=== PATIENT | male | born 1965 | race Caucasian/White ===

== ENCOUNTER 2018-10-12 17:15 | Observation (INO) ==
--- NOTE | 2018-10-12 19:52 | Emergency Department Note ---
Disposition Clinical Impression: GI bleed, Difficulty breathing Anemia Qualifiers: Qualified Code(s): D50.0 - Disposition: Admitted As Inpatient Condition: Good Time of Disposition: 21:22 General Adult HPI - General Chief complaint: ED Recheck/Abnormal Lab/Rx Stated complaint: blood transfusion Time Seen by Provider: 10/12/18 18:20 Source: patient Mode of arrival: ambulatory Limitations: no limitations Nursing Notes Reviewed: Yes Vital Signs Reviewed: Yes - History of Present Illness HPI Narrative: 53 yo male with PMHx of HTN and patt-en-y gastric bypass surgery presents to the ED after receiving abnormal lab results. He states he has been experiencing worsening shortness of breath and chest pressure over the past several months, and notices it when he is getting in and out of his truck or walking long distances. He had not seen a doctor for many years and finally went to see a new primary care physician. On initial lab testing they found him to be anemic at 9.5 and told him that this was a "critically low value, and he needed a blood transfusion emergently." The patient states he feels fine at rest, and currentl y only complains of a sore throat. He has not had any abdominal pain, nausea or vomiting. He does admit to blood streaked stools at times. He denies fever, chills, leg swelling, leg pain. Pain Scale: 0 - Related Data Home Medications Medication Instructions Recorded Confirmed Amlodipine Besylate 10 mg PO DAILY 10/12/18 10/12/18 Citalopram Hydrobromide 40 mg PO DAILY 10/12/18 10/12/18 [Citalopram HBr] Melatonin 5 mg PO HS 10/12/18 10/12/18 Triamterene/HCTZ 37.5/25mg 1 tab PO DAILY 10/12/18 10/12/18 [Dyazide] Allergies Allergy/AdvReac Type Severity Reaction Status Date / Time No Known Allergies Allergy Verified 10/12/18 21:41 All systems ED: reviewed and negative except as stated. Review of Systems: As Per HPI Constitutional: Reports: weakness. Denies: fever, chills Eyes: Denies: vision change Cardiovascular: Reports: chest pain, dyspnea on exertion. Denies: orthopnea, edema, syncope Respiratory: Denies: cough, wheezes, hemoptysis Gastrointestinal: Reports: hematochezia. Denies: abdominal pain, nausea, vomiting Genitourinary: Denies: dysuria, hematuria Musculoskeletal: Denies: back pain, neck pain Integumentary: Denies: rash Neurological: Reports: weakness. Denies: headache, numbness, paresthesias, confusion Endocrine: Reports: fatigue Past Medical History - Past Medical History Attestation: Yes The following information was validated with the patient. Source: patient Medical history: Reports: hypertension Psychiatric history: Reports: anxiety - Social History Smoking Status: Never smoker Smokeless Tobacco Status: No Alcohol use: Reports: none Drug use: Reports: none Physical Exam - General Limitations: no limitations General appearance: alert, in no apparent distress - Head Head exam: atraumatic, normocephalic - Eye Eye exam: Present: normal appearance, PERRL, EOMI - ENT ENT exam: normal exam, normal oropharynx, mucous membranes moist, other (throat non-erythematous without visible exudate or lesions) - Neck Neck exam: Present: normal inspection. Absent: tenderness, lymphadenopathy - Chest Chest inspection: Present: normal inspection. Absent: tenderness - Respiratory Respiratory exam: Present: normal lung sounds bilaterally - Cardiovascular Cardiovascular exam: Present: regular rate, normal rhythm - Abdominal Exam Abdominal exam: Present: soft, Non-Tender. Absent: distention, guarding, rebound, rigidity - Rectal Exam [employer]er present during exam: Yes ([employer]) Rectal exam: Present: normal inspection, normal rectal tone. Absent: black stool, bloody stool, hemorrhoids, mass, tenderness - Extremities Exam Extremities exam: Present: normal inspection, pedal edema (trace, bilateral). Absent: tenderness - Neurological Exam Neurological exam: Present: alert, oriented X3 - Psychiatric Psychiatric exam: Present: normal affect, normal mood - Skin Skin exam: Present: warm, dry, intact. Absent: pallor Course Vital Signs Temperature 98.1 F 10/12/18 17:26 Pulse Rate 90 10/12/18 17:26 Respiratory Rate 14 10/12/18 17:26 Blood Pressure 191/83 10/12/18 17:26 O2 Sat by Pulse Oximetry 97 10/12/18 17:26 Temperature 98.2 F 10/13/18 12:20 Pulse Rate 65 10/13/18 12:20 Respiratory Rate 14 10/13/18 12:20 Blood Pressure 123/89 10/13/18 12:20 O2 Sat by Pulse Oximetry 99 10/13/18 12:20 Oxygen Delivery Oxygen Delivery Room Air Medical Decision Making - MDM Narrative Medical decision making narrative: Pt presents with increased SOB with exertion, concerning for unstable angina vs symptomatic anemia vs other cardiopulmonary process. Labs will be repeated, and we will obtain EKG, troponin, and cxr along with a FOB. Pt is at risk for GI bleed secondary to his patt-en-y procedure. 2044 - patient's hemoglobin has had a significant drop from 9.5-8.7 over the past 4 days. Chest x-ray did not demonstrate any acute cardiopulmonary findings. EKG does not show evidence of ACS. Due to the patient's drop in hemoglobin with increased shortness of breath and chest pain we will admit to the hospital to find the specific location of blood loss. Stool Hemoccult has been sent at this time. 2119 - patient has been accepted by hospitalist for further evaluation of his anemia. - Medical Records Medical records reviewed: Yes I reviewed the patient's medical records. - Lab Data Lab results reviewed: Yes I reviewed the patient's lab results. Result diagrams: 10/13/18 08:47 10/13/18 02:03 Lab Results 10/12/18 10/12/18 10/12/18 Range/Units 19:45 19:45 19:45 WBC 10.5 (4.3-11.1) K/mcL RBC 4.49 (4.19-5.50) M/mcL Hgb 8.7 L (12.9-16.9) g/dL Hct 29.9 L (37.5-50.1) % MCV 66.6 L (83.0-100.0) fL MCH 19.4 L (28.0-33.3) pg MCHC 29.1 L (31.6-35.5) g/dL RDW 17.5 H (11.5-14.5) % Plt Count 514 H (140-400) K/mcL MPV 8.9 L (9.4-12.4) fL Immature Gran % 0.4 (0-4) % Seg Neutrophils % 65.3 % Lymphocytes % 21.2 % Monocytes % 9.3 % Eosinophils % 3.0 % Basophils % 0.8 % Neutrophils # 6.9 (1.6-8.9) K/mcL Lymphocytes # 2.2 (0.6-4.6) K/mcL Monocytes # 1.0 (0.0-1.3) K/mcL Eosinophils # 0.3 (0.0-0.6) K/mcL Basophils # 0.1 (0.0-0.2) K/mcL Microcytosis Present A (Not Present) Sodium 134 L (136-145) mEq/L Potassium 3.4 L (3.5-5.1) mEq/L Chloride 98 (98-107) mEq/L Carbon Dioxide 26 (23-29) mEq/L BUN 24 H (6-20) mg/dL Creatinine 0.87 (0.70-1.30) mg/dL Est GFR ( Amer) > 60 (> 60) Est GFR (Non-Af Amer) > 60 (> 60) BUN/Creatinine Ratio 28 H (6-26) Glucose 98 (70-105) mg/dL Calculated Osmolality 282 (280-300) Calcium 9.4 (8.6-10.3) mg/dL Magnesium 2.2 (1.6-2.6) mg/dL Troponin I < 0.03 (< 0.04) ng/mL B-Natriuretic Peptide 131 H (Less than 100) pg/mL TSH 1.885 (0.340-5.600) mcIU/mL Stool Occult Bld Scrn (Negative) 10/12/18 Range/Units 20:30 WBC (4.3-11.1) K/mcL RBC (4.19-5.50) M/mcL Hgb (12.9-16.9) g/dL Hct (37.5-50.1) % MCV (83.0-100.0) fL MCH (28.0-33.3) pg MCHC (31.6-35.5) g/dL RDW (11.5-14.5) % Plt Count (140-400) K/mcL MPV (9.4-12.4) fL Immature Gran % (0-4) % Seg Neutrophils % % Lymphocytes % % Monocytes % % Eosinophils % % Basophils % % Neutrophils # (1.6-8.9) K/mcL Lymphocytes # (0.6-4.6) K/mcL Monocytes # (0.0-1.3) K/mcL Eosinophils # (0.0-0.6) K/mcL Basophils # (0.0-0.2) K/mcL Microcytosis (Not Present) Sodium (136-145) mEq/L Potassium (3.5-5.1) mEq/L Chloride (98-107) mEq/L Carbon Dioxide (23-29) mEq/L BUN (6-20) mg/dL Creatinine (0.70-1.30) mg/dL Est GFR ( Amer) (> 60) Est GFR (Non-Af Amer) (> 60) BUN/Creatinine Ratio (6-26) Glucose (70-105) mg/dL Calculated Osmolality (280-300) Calcium (8.6-10.3) mg/dL Magnesium (1.6-2.6) mg/dL Troponin I (< 0.04) ng/mL B-Natriuretic Peptide (Less than 100) pg/mL TSH (0.340-5.600) mcIU/mL Stool Occult Bld Scrn Negative (Negative) - Radiology Data Radiology results reviewed: Yes I reviewed the patient's radiology results. - EKG Data EKG #1 EKG attestation: Yes I reviewed and interpreted this EKG. EKG results narrative: EKG obtained at 19:15 on 10/12/2018 [facility], [place] interval 159, QRS duration 106, QTC 414, QTC 463 Sinus rhythm with abnormal R-wave progression in the anterior leads. No ST segment elevations or depressions. No other T-wave abnormalities. No old EKG for comparison. Attestation Statement - Attestation Attestation: Resident Attestation: I examined this patient and my medical decision making was reviewed with the Resident Physician. I agree with the documented findings, di sposition and treatment plan as described except to the extent set forth below. We independently had [id number] contact with the patient. Patient presented for evaluation of anemia. Patient states that he has had worsening symptoms over the last month with associated exertional dyspnea and fatigue. Patient saw primary care provider who ordered a outpatient lab test show hemoglobin of 9. No baseline hemoglobin to compare. Patient has noticed blood streaks in his stool. Patient has not had significant abdominal pain. Patient will undergo further evaluation for possible GI bleed. Abdomen soft nontender to palpation without guarding or rebound.
[2018-10-12 20:15] LABS: Basophils # 0.1 K/mcL (0.0-0.2); Basophils % 0.8 %; Eosinophils # 0.3 K/mcL (0.0-0.6); Hematocrit 29.9 % (37.5-50.1); Hemoglobin 8.7 g/dL (12.9-16.9); Immature Granulocytes % 0.4 % (0-4); Lymphocytes # 2.2 K/mcL (0.6-4.6); Lymphocytes % 21.2 %; Mean Corpuscular HGB Conc 29.1 g/dL (31.6-35.5); Mean Corpuscular Hemoglobin 19.4 pg (28.0-33.3); Mean Corpuscular Volume 66.6 fL (83.0-100.0); Mean Platelet Volume 8.9 fL (9.4-12.4); Monocytes % 9.3 %; Neutrophils # 6.9 K/mcL (1.6-8.9); Platelet Count 514 K/mcL (140-400); Red Blood Count 4.49 M/mcL (4.19-5.50); Red Cell Distribution Width 17.5 % (11.5-14.5); Segmented Neutrophils % 65.3 %
[2018-10-12 20:16] LABS: Microcytosis Present (Not Present)
[2018-10-12 20:37] LABS: BUN/Creatinine Ratio 28 (6-26); Blood Urea Nitrogen 24 mg/dL (6-20); Calcium 9.4 mg/dL (8.6-10.3); Carbon Dioxide 26 mEq/L (23-29); Chloride 98 mEq/L (98-107); Glucose 98 mg/dL (70-105); Magnesium 2.2 mg/dL (1.6-2.6); Osmolality,Calculated 282 (280-300); Potassium 3.4 mEq/L (3.5-5.1); Sodium 134 mEq/L (136-145); Troponin I < 0.03 ng/mL (< 0.04); eGFR For Non-African Americans > 60 (> 60)
[2018-10-12 20:51] LABS: Thyroid Stimulating Hormone 1.885 mcIU/mL (0.340-5.600)
[2018-10-12] MEDS ORDERED: Naloxone 0.4 MG/ML INJ IVP PRN (22:17)
[2018-10-12] MEDS ORDERED: 0.9 % Sodium Chloride 1,000 ML IVC SCH (22:30)
--- NOTE | 2018-10-12 23:05 | Internal Med History&Physical ---
Date of Encounter: 10/12/18 Time of Encounter: 23:01 Internal Medicine - H&P: HPI Chief complaint: Abnormal labs History of present illness: Mr. Valiente is a 53 year old male with a past medical history of hypertension and Vivienne-en-Y gastric bypass surgery in 2000 who was referred to the ED after outpatient laboratory workup revealed a low hemoglobin. On initial lab testing they found him to be anemic at 9.5. Repeat hemoglobin 8.7 here in the ED. Patient has noted pinkish streaks of blood on his stool on and off for the past month. Denies any abdominal pain. No reports of fever, chills or diarrhea. Patient does state that he takes a daily Aleve and has been doing so for the past year. Last colonoscopy in his 40s with removal of several benign polyps. History of colorectal cancer in his grandfather. Denies unintentional weight loss. Patient is also endorsing worsening shortness of breath and chest pressure over the past several months. Shortness of breath and chest pressure appear typically occur with exertion, particularly getting in and out of his truck and walking long distances. Patient does report one prior episode of chest pressure approximately one year ago while seated at a sporting event. Patient never had any further workup given that his pain resolved. Patient endorses a remote history of smoking in his 20s. Reports family history of heart disease in his father with bypass surgery in his 70s. Patient recently established care with a primary care physician after having not seen a physician in many years. On arrival patient was found to be afebrile, heart rate in the 90s and hypertensive with a blood pressure 191/83. Repeat hemoglobin here found to be 8.7 since previous outpatient lab work 4 days ago. Chest x-ray was un remarkable. EKG did not show any evidence of ischemia. Past Med Surg Social Fam HX - Past Medical History Medical history: hypertension Psychiatric history: anxiety - Social History Smoking Status: Never smoker Smokeless Tobacco Status: No Alcohol use: none Drug use: none Internal Medicine - H&P: Meds Amlodipine Besylate 10 mg PO DAILY 10/12/18 [History] Citalopram Hydrobromide [Citalopram HBr] 40 mg PO DAILY 10/12/18 [History] Melatonin 5 mg PO HS 10/12/18 [History] Triamterene/HCTZ 37.5/25mg [Dyazide] 1 tab PO DAILY 10/12/18 [History] Allergy/AdvReac Type Severity Reaction Status Date / Time No Known Allergies Allergy Verified 10/12/18 21:41 All Systems PM: A 10-system review of systems was performed and is negative for pertinent findings except as documented above in the HPI. - Constitutional Constitutional: no chills, no fever(s), no night sweats - EENT Eyes: no change in vision, no discharge, no pain, no photophobia Ears: no ear discharge, no ear pain, no tinnitus Nose, mouth and throat: no dysphagia, no nasal discharge, no neck pain, no sore throat - Cardiovascular Cardiovascular ROS IM: no chest pain, no diaphoresis, no dyspnea, no lightheadedness, no palpitations, no syncope - Respiratory Respiratory: no cough, no dyspnea, no wheezing, no excessive phlegm production - Gastrointestinal Gastrointestinal: no abdominal pain, no diarrhea, no hematemesis, no hematochezia, no melena, no nausea, no vomiting - Musculoskeletal Musculoskeletal ROS IM: no numbness, no tingling - Integumentary Integumentary IM: no rash, no unusual bruising - Neurological Neurological ROS: no confusion, no convulsions, no focal weakness, no numbness, no tingling, no tremor(s) - Hematologic/Lymphatic Hematologic/Lymphatic: no easy bruising - Constitutional Vitals: Temp Pulse Resp BP Pulse Ox 98.1 F 70 18 132/63 97 10/12/18 17:26 10/12/18 22:59 10/12/18 22:59 10/12/18 22:59 10/12/18 22:59 Exam: General: Alert and oriented 3 lying in bed in no acute distress Skin:Normal color, no rash, no lesions. HEENT:EOM, pupils equal, round and reactive. Cardiovascular:Normal S1 & S2, no rubs, murmurs or gallops. No JVD. Pulse regular. Lungs:Normal breath sounds, no wheezes or crackles. Abdomen:Soft, non-tender, no rigidity. Periumbilical hernia Extremities:No deformity, no edema or tenderness, no joint swelling or clubbing. Neurological:Normal cognition and motor skills. Pulses:Carotid and radial pulses normal +2. Rest of the physical exam is non contributory Internal Med - H&P Results - Labs CBC & Chem 7: 10/13/18 08:47 10/13/18 02:03 Labs: Short CBC 10/12/18 Range/Units 19:45 WBC 10.5 (4.3-11.1) K/mcL Hgb 8.7 L (12.9-16.9) g/dL Hct 29.9 L (37.5-50.1) % Plt Count 514 H (140-400) K/mcL Neutrophils # 6.9 (1.6-8.9) K/mcL BMP 10/12/18 19:45 Sodium 134 L Potassium 3.4 L Chloride 98 Carbon Dioxide 26 BUN 24 H Creatinine 0.87 Glucose 98 Calcium 9.4 Cardiac Enzymes 10/12/18 Range/Units 19:45 Troponin I < 0.03 (< 0.04) ng/mL - Impressions ITS Impressions Chest X-Ray 10/12/18 18:46 IMPRESSION: 1. No active pulmonary disease. D/ / Nicolas Fajardo MD / Nicolas Fajardo MD Interpreting Provider: Nicolas Fajardo MD - Assessment and Plan (1) Anemia Current Visit: Yes Status: Acute Assessment and plan: Symptomatic microcytic anemia associated with dyspnea and symptoms of orthostasis for the past month. Hemoglobin of 8.7 down from 9.5 four days ago. History of Vivienne-en-Y in 2000. Patient not currently on any blood thinner. Patient reporting pinkish streaks of blood on his stool intermittently. Also endorses taking 1 daily Aleve for the past year. Concern for GI bleed source of which is unclear. Patient currently asymptomatic. Hemodynamically stable. -We will repeat hemoglobin in the morning. Hold off transfusion for now. Consider transfusing if hemoglobin continues to trend downwards. Qualifiers: Qualified Code(s): D50.0 - Iron deficiency anemia secondary to blood loss (chronic) (2) Dyspnea Current Visit: Yes Status: Acute Assessment and plan: Patient reports 1 month history of dyspnea with exertion. Suspect likely seco ndary to anemia. Cannot r/o underlying CAD as a contributing factor -Consider tranfusing if Hb continues to drop -Out Px workup for CAD Qualifiers: Dyspnea type: dyspnea on exertion Qualified Code(s): R06.09 - Other forms of dyspnea (3) GI bleed Current Visit: Yes Status: Acute Assessment and plan: History of GI bleed in patient with prior history of Vivienne-en-Y surgery in 2000. Patient reports having streaks of blood intermittently on his stool. Patient also endorses one daily Aleve for the past year. No reports of abdominal pain. Source likely lower GI bleed however, given history of chronic NSAID use and Vivienne-en-Y surgery cannot exclude upper GI source as well. -Keep patient nothing by mouth -We will start on IV Protonix -Case discussed with surgery who will plan for possible endoscopy tomorrow afternoon. Qualifiers: GI bleed type/associated pathology: unspecified gastrointestinal hemorrhage type Qualified Code(s): K92.2 - Gastrointestinal hemorrhage, unspecified (4) Chest pressure Current Visit: Yes Status: Acute Assessment and plan: Patient reports intermittent chest pressure with exertion. Initial troponin negative. EKG shows no evidence of ischemic changes. Patient has of a family history of heart very artery disease in his father. Patient reports he has out patient stress test plan for the of this month. Patient currently asymptomatic. (5) DVT prophylaxis Current Visit: Yes Status: Acute Assessment and plan: Pneumatic compression devices - Time Spent With Patient Total time spent is greater than 50% in coordination of care (as documented) at patient's floor/unit and/or counseling patient:
[2018-10-13 02:19] LABS: Basophils # 0.1 K/mcL (0.0-0.2); Basophils % 0.9 %; Eosinophils # 0.4 K/mcL (0.0-0.6); Eosinophils % 4.6 %; Hematocrit 27.7 % (37.5-50.1); Immature Granulocytes % 0.4 % (0-4); Lymphocytes # 2.1 K/mcL (0.6-4.6); Lymphocytes % 24.5 %; Mean Corpuscular HGB Conc 28.9 g/dL (31.6-35.5); Mean Corpuscular Hemoglobin 19.5 pg (28.0-33.3); Mean Corpuscular Volume 67.6 fL (83.0-100.0); Mean Platelet Volume 8.8 fL (9.4-12.4); Monocytes # 0.9 K/mcL (0.0-1.3); Monocytes % 10.2 %; Neutrophils # 5.1 K/mcL (1.6-8.9); Platelet Count 430 K/mcL (140-400); Red Cell Distribution Width 17.8 % (11.5-14.5); Segmented Neutrophils % 59.4 %
[2018-10-13 02:23] LABS: Prothrombin Time 11.3 Seconds (9.4-12.1)
[2018-10-13 02:25] LABS: Activated Partial Thrombo Time 29.8 Seconds (26.0-36.0)
[2018-10-13 02:35] LABS: Alanine Aminotransferase 33 Units/L (7-52); Albumin 3.7 g/dL (3.5-5.7); Albumin/Globulin Ratio 1.2 (1.1-2.2); Alkaline Phosphatase 287 Units/L (34-104); Aspartate Amino Transferase 28 Units/L (13-39); BUN/Creatinine Ratio 26 (6-26); Bilirubin,Total 0.3 mg/dL (0.3-1.0); Blood Urea Nitrogen 22 mg/dL (6-20); Calcium 8.6 mg/dL (8.6-10.3); Carbon Dioxide 27 mEq/L (23-29); Chloride 99 mEq/L (98-107); Glucose 100 mg/dL (70-105); Osmolality,Calculated 283 (280-300); Potassium 3.2 mEq/L (3.5-5.1); Sodium 135 mEq/L (136-145); Total Protein 6.7 g/dL (6.4-8.9); eGFR For Non-African Americans > 60 (> 60)
[2018-10-13 02:48] LABS: Hypochromasia Present (Not Present); Platelet Estimate Normal (Normal); Target Cells 2+ (Not Present)
[2018-10-13 09:07] LABS: Hematocrit 33.7 % (37.5-50.1)
[2018-10-13 09:11] LABS: Hemoglobin 9.6 g/dL (12.9-16.9)
[2018-10-13] MEDS: Pantoprazole 40 MG VIAL IVP SCH ×2 (09:34→17:13)
--- NOTE | 2018-10-13 10:02 | Internal Med Progress Note ---
Hospitalist Progress Note - Encounter Date of Encounter: 10/13/18 Time of Encounter: 10:02 - Subjective Interval History: Patient presents here for low hemoglobin and lower gi bleed. This morning he has no complaints, no acute events. Denies abdominal pain, CP, SOB, melena, hematochezia. He did have SOB prior to admission, currently no issues. - Exam Vitals: Temp Pulse Resp BP Pulse Ox 97.8 F 63 15 106/67 95 10/13/18 08:18 10/13/18 08:18 10/13/18 08:18 10/13/18 08:18 10/13/18 08:18 Exam: General: Alert and oriented 3 lying in bed in no acute distress Skin:Normal color, no rash, no lesions. Head: NC/AT EENT: MMM, EOM, pupils equal, round and reactive. Cardiovascular:Normal S1 & S2, no rubs, murmurs or gallops. No JVD. Pulse regular. Lungs:Normal breath sounds, no wheezes or crackles. Abdomen:Soft, non-tender, no rigidity. Periumbilical hernia Extremities:No deformity, no edema or tenderness, no joint swelling or clubbing. Neurological:Normal cognition and motor skills. Pulses:Carotid and radial pulses normal +2. - Assessment and Plan (1) Anemia Current Visit: Yes Status: Acute Assessment and Plan: Symptomatic microcytic anemia associated with dyspnea and symptoms of orthostasis for the past month. Hemoglobin of 8.7 down from 9.5 four days ago. History of Vivienne-en-Y in 2000. Patient not currently on any blood thinner. Patient reporting pinkish streaks of blood on his stool intermittently. Also endorses taking 1 daily Aleve for the past year. Concern for GI bleed source of which is unclear. Patient currently asymptomatic. Hemodynamically stable. -We will repeat hemoglobin in the morning. DC NSAIDs IV Protonix No indication for transfusion at this time, repeat hemoglobin at 9.6 and hemodynamically stable. Endoscopy likely tomorrow. (2) GI bleed Current Visit: Yes Status: Acute Assessment and Plan: History of GI bleed in patient with prior history of Vivienne-en-Y surgery in 2000. Patient reports having streaks of blood intermittently on his stool. Patient also endorses one daily Aleve for the past year. No reports of abdominal pain. Source likely lower GI bleed however, given history of chronic NSAID use and Vivienne-en-Y surgery cannot exclude upper GI source as well. Plan as above. (3) Dyspnea Current Visit: Yes Status: Acute Assessment and Plan: Patient reports 1 month history of dyspnea with exertion. Suspect likely secondary to anemia. Cannot r/o underlying CAD as a contributing factor No indication for transfusion. -Out Px workup for CAD (4) Chest pressure Current Visit: Yes Status: Acute Assessment and Plan: Patient reports intermittent chest pressure with exertion. Initial troponin negative. EKG shows no evidence of ischemic changes. Patient has of a family history of heart very artery disease in his father. Patient reports he has outpatient stress test plan for the of this month. Patient currently asymptomatic. If chest pain returns, will consider doing stress test after GI bleed workup. (5) DVT prophylaxis Current Visit: Yes Status: Acute Assessment and Plan: Pneumatic compression devices - Time Spent with Patient Total time spent is greater than 50% in coordination of care (as documented) at patient's floor/unit and/or counseling patient: Internal Medicine: Result - Labs CBC & Chem 7: 10/13/18 08:47 10/13/18 02:03 Labs: Short CBC 10/12/18 10/13/18 10/13/18 Range/Units 19:45 02:03 08:47 WBC 10.5 8.5 (4.3-11.1) K/mcL Hgb 8.7 L 8.0 L 9.6 L D (12.9-16.9) g/dL Hct 29.9 L 27.7 L 33.7 L (37.5-50.1) % Plt Count 514 H 430 H (140-400) K/mcL Neutrophils # 6.9 5.1 (1.6-8.9) K/mcL BMP 10/12/18 10/13/18 19:45 02:03 Sodium 134 L 135 L Potassium 3.4 L 3.2 L Chloride 98 99 Carbon Dioxide 26 27 BUN 24 H 22 H Creatinine 0.87 0.85 Glucose 98 100 Calcium 9.4 8.6 Cardiac Enzymes 10/12/18 10/13/18 Range/Units 19:45 02:03 Troponin I < 0.03 < 0.03 (< 0.04) ng/mL Liver Function 10/13/18 Range/Units 02:03 Total Bilirubin 0.3 (0.3-1.0) mg/dL AST 28 (13-39) Units/L ALT 33 (7-52) Units/L Alkaline Phosphatase 287 H (34-104) Units/L Albumin 3.7 (3.5-5.7) g/dL - ABG Interpretation ABG results: PT/INR, D-dimer PT 11.3 Seconds (9.4-12.1) 10/13/18 02:03 - Impressions Impressions Chest X-Ray 10/12/18 18:46 IMPRESSION: 1. No active pulmonary disease. D/ / Nicolas Fajardo MD / Nicolas Fajardo MD Interpreting Provider: Nicolas Fajardo MD Consult Discharge Plan - Plan Referrals: Nadir Sanchez [Primary Care Provider] -
--- NOTE | 2018-10-13 11:13 | AcuteCare Surgery Consult Note ---
<Harrison Fritz N - Last Filed: 10/13/18 11:42> Date of Encounter: 10/13/18 Time of Encounter: 08:20 Assessment and Plan (1) Anemia Current Visit: Yes Status: Acute Concern for blood loss anemia secondary to GI bleed Microcytic anemia with symptomatic exertional dyspnea, fatigue, and dizziness Previous history of Vivienne-en-Y gastric bypass surgery in 2000 Patient notes one-month history of blood streaking in stools, denies large volume hematemesis, hematochezia, or melena denies anticoagulant use, but admits to daily Aleve Hemoglobin 9.6 this morning with an INR 1.0 Plan for EGD and colonoscopy tomorrow Clear liquid diet without red or purple dye Nothing by mouth at midnight Bowel prep ordered Qualifiers: Qualified Code(s): D50.0 - Iron deficiency anemia secondary to blood loss (chronic) History of Present Illness Consult date: 10/13/18 History of present illness: Patient is 53-year-old male with a past medical history of Vivienne-en-Y gastric bypass surgery who had anemia of 9.5 found on outpatient labs. Repeat hemoglobin in the emergency department was 8.7. 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 He has also noted blood streaking in his stool. No abdominal pain, has been tolerating a diet, no fevers or chills, no large volume hematochezia or melena. Family history of colon cancer in his grandfather. Has had previous colonoscopies which was only significant for polyps. Patient was admitted to the hospital, typed and screened, received protonix, but did not require packed RBC transfusion. Repeat labs this morning show hemoglobin 9.6. INR 1.0 and patient denies any anticoagulant use. Past Med Surg Social Fam HX - Past Medical History Medical history: hypertension Psychiatric history: anxiety - Social History Smoking Status: Never smoker Smokeless Tobacco Status: Yes Alcohol use: rarely Drug use: none Medications and Allergies Amlodipine Besylate 10 mg PO DAILY 10/12/18 [History] Citalopram Hydrobromide [Citalopram HBr] 40 mg PO DAILY 10/12/18 [History] Melatonin 5 mg PO HS 10/12/18 [History] Triamterene/HCTZ 37.5/25mg [Dyazide] 1 tab PO DAILY 10/12/18 [History] Allergy/AdvReac Type Severity Reaction Status Date / Time No Known Allergies Allergy Verified 10/12/18 21:41 Review of Systems All systems PM: The remainder of the systems were reviewed and are negative - Constitutional no chills, no fever(s) - Cardiovascular no chest pain - Respiratory dyspnea on exertion - Gastrointestinal other (Blood streaking in stool), no abdominal pain, no diarrhea, no melena - Genitourinary no hematuria - Integumentary no rash - Neurological dizziness - Endocrine fatigue General Surgery Exam Initial Vital Signs Temp Pulse Resp BP Pulse Ox 98.1 F 90 14 191/83 97 10/12/18 17:26 10/12/18 17:26 10/12/18 17:10/12/18 17:26 10/12/18 17:26 - General physical appearance well developed, well nourished, no distress - Eyes PERRL, normal ocular movement - ENT normal pinna, normal nares - Neck trachea midline, no venous distension - Respiratory normal expansion, normal respiratory effort, clear to auscultation - Cardiovascular Cardiovascular exam: Present: RRR. Absent: murmurs - Abdomen Abdomen general surgery: Present: bowel sounds present, soft, non tender. Absent: guarding, rigid - Integumentary Integumentary general surgery: Present: warm and dry, no abnormal pigmentation - Neurologic Present: CN 2-12 grossly intact - Musculoskeletal Present: normal posture - Psychiatric Psychiatric general surgery: Present: A&Ox3, appropriate Exam Initial Vital Signs Temp Pulse Resp BP Pulse Ox 98.1 F 90 14 191/83 97 10/12/18 17:26 10/12/18 17:26 10/12/18 17:26 10/12/18 17:26 10/12/18 17:26 Results - Labs 10/13/18 08:47 10/13/18 02:03 Abnormal lab results RBC 4.10 M/mcL (4.19-5.50) L 10/13/18 02:03 Hgb 9.6 g/dL (12.9-16.9) L D 10/13/18 08:47 Hct 33.7 % (37.5-50.1) L 10/13/18 08:47 MCV 67.6 fL (83.0-100.0) L 10/13/18 02:03 MCH 19.5 pg (28.0-33.3) L 10/13/18 02:03 MCHC 28.9 g/dL (31.6-35.5) L 10/13/18 02:03 RDW 17.8 % (11.5-14.5) H 10/13/18 02:03 Plt Count 430 K/mcL (140-400) H 10/13/18 02:03 MPV 8.8 fL (9.4-12.4) L 10/13/18 02:03 Present (Not Present) A 10/13/18 02:03 Present (Not Present) A 10/12/18 19:45 2+ (Not Present) A 10/13/18 02:03 Sodium 135 mEq/L (136-145) L 10/13/18 02:03 Potassium 3.2 mEq/L (3.5-5.1) L 10/13/18 02:03 BUN 22 mg/dL (6-20) H 10/13/18 02:03 28 (6-26) H 10/12/18 19:45 POC Glucose 109 mg/dL (70-99) H 10/13/18 05:31 287 Units/L (34-104) H 10/13/18 02:03 B-Natriuretic Peptide 131 pg/mL (Less than 100) H 10/12/18 19:45 Diabetes panel 10/12/18 10/13/18 Range/Units 19:45 02:03 Sodium 134 L 135 L (136-145) mEq/L Potassium 3.4 L 3.2 L (3.5-5.1) mEq/L Chloride 98 99 (98-107) mEq/L Carbon Dioxide 26 27 (23-29) mEq/L BUN 24 H 22 H (6-20) mg/dL Creatinine 0.87 0.85 (0.70-1.30) mg/dL Glucose 98 100 (70-105) mg/dL Calcium 9.4 8.6 (8.6-10.3) mg/dL AST 28 (13-39) Units/L ALT 33 (7-52) Units/L Alkaline Phosphatase 287 H (34-104) Units/L Albumin 3.7 (3.5-5.7) g/dL Thyroid panel 10/12/18 Range/Units 19:45 TSH 1.885 (0.340-5.600) mcIU/mL Calcium panel 10/12/18 10/13/18 Range/Units 19:45 02:03 Calcium 9.4 8.6 (8.6-10.3) mg/dL Albumin 3.7 (3.5-5.7) g/dL Pituitary panel 10/12/18 10/13/18 Range/Units 19:45 02:03 Sodium 134 L 135 L (136-145) mEq/L Potassium 3.4 L 3.2 L (3.5-5.1) mEq/L Chloride 98 99 (98-107) mEq/L Carbon Dioxide 26 27 (23-29) mEq/L BUN 24 H 22 H (6-20) mg/dL Creatinine 0.87 0.85 (0.70-1.30) mg/dL Glucose 98 100 (70-105) mg/dL Calcium 9.4 8.6 (8.6-10.3) mg/dL TSH 1.885 (0.340-5.600) mcIU/mL Adrenal panel 10/12/18 10/13/18 Range/Units 19:45 02:03 Sodium 134 L 135 L (136-145) mEq/L Potassium 3.4 L 3.2 L (3.5-5.1) mEq/L Chloride 98 99 (98-107) mEq/L Carbon Dioxide 26 27 (23-29) mEq/L BUN 24 H 22 H (6-20) mg/dL Creatinine 0.87 0.85 (0.70-1.30) mg/dL Glucose 98 100 (70-105) mg/dL Calcium 9.4 8.6 (8.6-10.3) mg/dL Total Bilirubin 0.3 (0.3-1.0) mg/dL AST 28 (13-39) Units/L ALT 33 (7-52) Units/L Alkaline Phosphatase 287 H (34-104) Units/L Albumin 3.7 (3.5-5.7) g/dL All other labs normal. Consult Discharge Plan - Plan Referrals: Nadir Sanchez [Primary Care Provider] - <Ander Foss - Last Filed: 10/13/18 16:55> Date of Encounter: 10/13/18 Review of Systems All systems PM: The remainder of the systems were reviewed and are negative General Surgery Exam Initial Vital Signs Temp Pulse Resp BP Pulse Ox 98.1 F 90 14 191/83 97 10/12/18 17:26 10/12/18 17:26 10/12/18 17:26 10/12/18 17:26 10/12/18 17:26 Exam Initial Vital Signs Temp Pulse Resp BP Pulse Ox 98.1 F 90 14 191/83 97 10/12/18 17:26 10/12/18 17:26 10/12/18 17:26 10/12/18 17:26 10/12/18 17:26 Results - Labs 10/13/18 08:47 10/13/18 02:03 Abnormal lab results RBC 4.10 M/mcL (4.19-5.50) L 10/13/18 02:03 Hgb 9.6 g/dL (12.9-16.9) L D 10/13/18 08:47 Hct 33.7 % (37.5-50.1) L 10/13/18 08:47 MCV 67.6 fL (83.0-100.0) L 10/13/18 02:03 MCH 19.5 pg (28.0-33.3) L 10/13/18 02:03 MCHC 28.9 g/dL (31.6-35.5) L 10/13/18 02:03 RDW 17.8 % (11.5-14.5) H 10/13/18 02:03 Plt Count 430 K/mcL (140-400) H 10/13/18 02:03 MPV 8.8 fL (9.4-12.4) L 10/13/18 02:03 Present (Not Present) A 10/13/18 02:03 Present (Not Present) A 10/12/18 19:45 2+ (Not Present) A 10/13/18 02:03 Sodium 135 mEq/L (136-145) L 10/13/18 02:03 Potassium 3.2 mEq/L (3.5-5.1) L 10/13/18 02:03 BUN 22 mg/dL (6-20) H 10/13/18 02:03 28 (6-26) H 10/12/18 19:45 POC Glucose 109 mg/dL (70-99) H 10/13/18 05:31 287 Units/L (34-104) H 10/13/18 02:03 B-Natriuretic Peptide 131 pg/mL (Less than 100) H 10/12/18 19:45 Diabetes panel 10/12/18 10/13/18 Range/Units 19:45 02:03 Sodium 134 L 135 L (136-145) mEq/L Potassium 3.4 L 3.2 L (3.5-5.1) mEq/L Chloride 98 99 (98-107) mEq/L Carbon Dioxide 26 27 (23-29) mEq/L BUN 24 H 22 H (6-20) mg/dL Creatinine 0.87 0.85 (0.70-1.30) mg/dL Glucose 98 100 (70-105) mg/dL Calcium 9.4 8.6 (8.6-10.3) mg/dL AST 28 (13-39) Units/L ALT 33 (7-52) Units/L Alkaline Phosphatase 287 H (34-104) Units/L Albumin 3.7 (3.5-5.7) g/dL Thyroid panel 10/12/18 Range/Units 19:45 TSH 1.885 (0.340-5.600) mcIU/mL Calcium panel 10/12/18 10/13/18 Range/Units 19:45 02:03 Calcium 9.4 8.6 (8.6-10.3) mg/dL Albumin 3.7 (3.5-5.7) g/dL Pituitary panel 10/12/18 10/13/18 Range/Units 19:45 02:03 Sodium 134 L 135 L (136-145) mEq/L Potassium 3.4 L 3.2 L (3.5-5.1) mEq/L Chloride 98 99 (98-107) mEq/L Carbon Dioxide 26 27 (23-29) mEq/L BUN 24 H 22 H (6-20) mg/dL Creatinine 0.87 0.85 (0.70-1.30) mg/dL Glucose 98 100 (70-105) mg/dL Calcium 9.4 8.6 (8.6-10.3) mg/dL TSH 1.885 (0.340-5.600) mcIU/mL Adrenal panel 10/12/18 10/13/18 Range/Units 19:45 02:03 Sodium 134 L 135 L (136-145) mEq/L Potassium 3.4 L 3.2 L (3.5-5.1) mEq/L Chloride 98 99 (98-107) mEq/L Carbon Dioxide 26 27 (23-29) mEq/L BUN 24 H 22 H (6-20) mg/dL Creatinine 0.87 0.85 (0.70-1.30) mg/dL Glucose 98 100 (70-105) mg/dL Calcium 9.4 8.6 (8.6-10.3) mg/dL Total Bilirubin 0.3 (0.3-1.0) mg/dL AST 28 (13-39) Units/L ALT 33 (7-52) Units/L Alkaline Phosphatase 287 H (34-104) Units/L Albumin 3.7 (3.5-5.7) g/dL All other labs normal. - Attending Attestation patient seen and examined. i have reviewed all labs, imaging and notes pertinent to this case. I have discussed the case in detail with the resident. i agree with the above assessment and plan.
[2018-10-13] MEDS: Chloraseptic Spray 177 ML BOTTLE MM PRN ×2 (14:25→23:42)
[2018-10-13] MEDS: Nicotine 14 MG PATCH.TD24 TD SCH (14:25)
[2018-10-14 05:23] LABS: Basophils % 0.8 %; Immature Granulocytes % 0.2 % (0-4)
[2018-10-14 05:25] LABS: Basophils # 0.1 K/mcL (0.0-0.2); Eosinophils # 0.7 K/mcL (0.0-0.6); Hematocrit 30.5 % (37.5-50.1); Hemoglobin 8.6 g/dL (12.9-16.9); Lymphocytes # 1.9 K/mcL (0.6-4.6); Lymphocytes % 19.9 %; Mean Corpuscular HGB Conc 28.2 g/dL (31.6-35.5); Mean Corpuscular Hemoglobin 19.4 pg (28.0-33.3); Mean Corpuscular Volume 68.8 fL (83.0-100.0); Monocytes # 0.8 K/mcL (0.0-1.3); Monocytes % 8.7 %; Neutrophils # 5.9 K/mcL (1.6-8.9); Platelet Count 482 K/mcL (140-400); Red Blood Count 4.43 M/mcL (4.19-5.50); Red Cell Distribution Width 17.9 % (11.5-14.5); Segmented Neutrophils % 63.4 %
[2018-10-14] MEDS: Pantoprazole 40 MG VIAL IVP SCH ×2 (05:51→18:24)
[2018-10-14 05:57] LABS: Platelet Estimate Normal (Normal)
[2018-10-14 06:20] LABS: BUN/Creatinine Ratio 18 (6-26); Blood Urea Nitrogen 15 mg/dL (6-20); Calcium 9.2 mg/dL (8.6-10.3); Carbon Dioxide 29 mEq/L (23-29); Chloride 103 mEq/L (98-107); Glucose 103 mg/dL (70-105); Osmolality,Calculated 287 (280-300); Potassium 4.6 mEq/L (3.5-5.1); Sodium 138 mEq/L (136-145); eGFR For Non-African Americans > 60 (> 60)
--- NOTE | 2018-10-14 10:45 | Internal Med Progress Note ---
Hospitalist Progress Note - Encounter Date of Encounter: 10/14/18 Time of Encounter: 13:26 - Subjective Interval History: Patient complains of dry, sore throat. He denies any bloody bowel movements, melena, nausea/vomiting, fevers/chills. - Exam Vitals: Temp Pulse Resp BP Pulse Ox 97.8 F 68 14 131/76 95 10/14/18 07:55 10/14/18 07:55 10/14/18 07:55 10/14/18 07:55 10/14/18 07:55 Exam: General: Alert and oriented 3 lying in bed in no acute distress Skin:Normal color, no rash, no lesions. HEENT:EOM, pupils equal, round and reactive. Tonsils are normal in appearance, no exudate, no airway swelling. Cardiovascular:Normal S1 & S2, no rubs, murmurs or gallops. No JVD. Pulse regular. Lungs:Normal breath sounds, no wheezes or crackles. Abdomen:Soft, non-tender, no rigidity. Periumbilical hernia Extremities:No deformity, no edema or tenderness, no joint swelling or clubbing. Neurological:Normal cognition and motor skills. Pulses:Carotid and radial pulses normal +2. Rest of the physical exam is non contributory - Assessment and Plan (1) Anemia Current Visit: Yes Status: Acute Assessment and Plan: Symptomatic microcytic anemia associated with dyspnea and symptoms of orthostasis for the past month. Hemoglobin of 8.7 down from 9.5 four days ago. History of Vivienne-en-Y in 2000. Patient not currently on any blood thinner. Patient reporting pinkish streaks of blood on his stool intermittently. Also endorses taking 1 daily Aleve for the past year. Concern for GI bleed source of which is unclear. Patient currently asymptomatic. Hemodynamically stable. Home NSAIDs discontinued. IV Protonix No indication for transfusion at this time. Plan for endoscopy today (2) GI bleed Current Visit: Yes Status: Acute Assessment and Plan: History of GI bleed in patient with prior history of Vivienne-en-Y surgery in 2000. Patient reports having streaks of blood intermittently on his stool. Patient also endorses one daily Aleve for the past year. No reports of abdominal pain. Source likely lower GI bleed however, given history of chronic NSAID use and Vivienne-en-Y surgery cannot exclude upper GI source as well. Plan as above (3) Dyspnea Current Visit: Yes Status: Acute Assessment and Plan: Patient reports 1 month history of dyspnea with exertion. Suspect likely secondary to anemia. Cannot r/o underlying CAD as a contributing factor -Consider tranfusing if Hb continues to drop -Out Px workup for CAD is already scheduled (4) Chest pressure Current Visit: Yes Status: Acute Assessment and Plan: Patient reports intermittent chest pressure with exertion. Initial troponin negative. EKG shows no evidence of ischemic changes. Patient has of a family history of heart very artery disease in his father. Patient reports he has outpatient stress test plan for the of this month. Patient currently asymptomatic. (5) DVT prophylaxis Current Visit: Yes Status: Acute Assessment and Plan: Pneumatic compression devices - Time Spent with Patient Total time spent is greater than 50% in coordination of care (as documented) at patient's floor/unit and/or counseling patient: Internal Medicine: Result - Labs CBC & Chem 7: 10/14/18 04:25 10/14/18 04:25 Labs: Short CBC 10/14/18 Range/Units 04:25 WBC 9.3 (4.3-11.1) K/mcL Hgb 8.6 L (12.9-16.9) g/dL Hct 30.5 L (37.5-50.1) % Plt Count 482 H (140-400) K/mcL Neutrophils # 5.9 (1.6-8.9) K/mcL BMP 10/14/18 04:25 Sodium 138 Potassium 4.6 Chloride 103 Carbon Dioxide 29 BUN 15 Creatinine 0.82 Glucose 103 Calcium 9.2 - ABG Interpretation ABG results: PT/INR, D-dimer PT 11.3 Seconds (9.4-12.1) 10/13/18 02:03 Consult Discharge Plan - Plan Referrals: Ndair Sanchez [Primary Care Provider] - (1) Anemia Qualifiers: Qualified Code(s): D50.0 - Iron deficiency anemia secondary to blood loss (chronic) (2) GI bleed Qualifiers: GI bleed type/associated pathology: unspecified gastrointestinal hemorrhage type Qualified Code(s): K92.2 - Gastrointestinal hemorrhage, unspecified (3) Dyspnea Qualifiers: Dyspnea type: dyspnea on exertion Qualified Code(s): R06.09 - Other forms of dyspnea
[2018-10-14] MEDS ORDERED: *HR* Midazolam HCl 5 MG/5 ML VIAL IVP ONE (10:55)
[2018-10-14] MEDS ORDERED: *HR* FentaNYL (PF) 100 MCG/2 ML VIAL ONE (10:55)
[2018-10-14] MEDS ORDERED: Tetracaine/Benzocaine/Butamben 1 SPRAY AEROSOL MM ONE (11:02)
[2018-10-14] MEDS ORDERED: *HR* FentaNYL (PF) 100 MCG/2 ML VIAL IVP ONE (11:02)
--- NOTE | 2018-10-14 11:02 | Pre-Sedation Evaluation ---
Pre-sedation evaluation - Pre-sedation checklist Date of procedure: 10/14/18 Procedure: EDG/Coloscopy Recent Vitals: Last Vital Signs Temp 97.8 F 10/14/18 07:55 Pulse 68 10/14/18 07:55 Resp 14 10/14/18 07:55 BP 131/76 10/14/18 07:55 Pulse Ox 95 10/14/18 07:55 H&P (including ROS) documented in medical record: Yes Previous reaction to sedatives/anesthetics: No Dietary Status: NPO after Midnight Dentition: No loose teeth or bridges ASA Classification *see protocol: CLASS II-Mild systemic disease Plan of Care: Pt appropriate candidate for procedure/moderate/conscious sedation, Risks/benefits of procedure/sedation discussed w/ patient/family
[2018-10-14] MEDS: 0.9 % Sodium Chloride 1,000 ML IVC SCH (11:17)
[2018-10-14] MEDS: *HR* Midazolam HCl 5 MG/5 ML VIAL IVP ONE ×3 (11:17→11:21)
[2018-10-14] MEDS ORDERED: *HR* Midazolam HCl 2 MG/2 ML VIAL ONE (11:19)
--- NOTE | 2018-10-14 14:12 | Electrocardiograph Report ---
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
[2018-10-14] MEDS: Nicotine 14 MG PATCH.TD24 TD SCH (15:59)
--- NOTE | 2018-10-14 16:51 | AcuteCareSurgery Progress Note ---
Date of Encounter: 10/14/18 Time of Encounter: 16:49 - Assessment and Plan (1) Anemia Current Visit: Yes Status: Acute 53M with anemia of unknown cause; attempted EGD and colonoscopy but patient did not tolerate the procedure while on iv sedation; trend h/h CLD NPO at midnight plan for scopes on 10/15 with MAC Qualifiers: Iron deficiency anemia type: unspecified iron deficiency Qualified Code(s): D50.9 - Iron deficiency anemia, unspecified Subjective Patient reports: no new complaints Objective Vital Signs - Last 8 Hours Temp Pulse Resp BP Pulse Ox 10/14/18 13:00 64 14 112/65 92 10/14/18 12:30 98.2 F 83 16 130/75 95 10/14/18 12:00 97.7 F 76 15 126/82 95 10/14/18 11:48 84 16 105/58 98 10/14/18 11:43 65 16 108/59 94 10/14/18 11:38 63 16 112/61 93 10/14/18 11:33 65 16 110/61 93 10/14/18 11:28 70 16 119/81 97 10/14/18 11:23 83 16 129/61 99 10/14/18 11:18 77 16 150/86 100 10/14/18 11:13 71 16 150/88 100 10/14/18 11:05 98.0 F 76 16 147/75 100 Intake and Output 10/14/18 10/14/18 10/14/18 07:59 15:59 23:59 Intake Total 0 / 100 100 / 100 Output Total 225 / 225 Balance -225 / -125 100 / -125 Intake: IV Fluids 100 / 100 0.9 % Sodium Chloride 1,000 ML 100 / 100 @ 50 mls/hr IVC .Q20H BRIEN Rx#: [id number] Oral 0 / 0 0 / 0 Output: Urine 225 / 225 Other: Meal npo Percent of Meal Consumed 0% # Voids 1 # Bowel Movements 1 Weight 144.7 kg Blood Glucose* 99 Patient Weight 10/14/18 23:59 Weight 144.7 kg - General physical appearance no distress - Respiratory normal expansion, normal respiratory effort - Cardiovascular Cardiovascular exam: Present: RRR - Abdomen Abdomen: Present: soft, non tender - Neurologic CN 2-12 grossly intact - Labs 10/14/18 04:25 10/14/18 04:25 Diabetes panel 10/14/18 Range/Units 04:25 Sodium 138 (136-145) mEq/L Potassium 4.6 (3.5-5.1) mEq/L Chloride 103 (98-107) mEq/L Carbon Dioxide 29 (23-29) mEq/L BUN 15 (6-20) mg/dL Creatinine 0.82 (0.70-1.30) mg/dL Glucose 103 (70-105) mg/dL Calcium 9.2 (8.6-10.3) mg/dL Calcium panel 10/14/18 Range/Units 04:25 Calcium 9.2 (8.6-10.3) mg/dL Pituitary panel 10/14/18 Range/Units 04:25 Sodium 138 (136-145) mEq/L Potassium 4.6 (3.5-5.1) mEq/L Chloride 103 (98-107) mEq/L Carbon Dioxide 29 (23-29) mEq/L BUN 15 (6-20) mg/dL Creatinine 0.82 (0.70-1.30) mg/dL Glucose 103 (70-105) mg/dL Calcium 9.2 (8.6-10.3) mg/dL Adrenal panel 10/14/18 Range/Units 04:25 Sodium 138 (136-145) mEq/L Potassium 4.6 (3.5-5.1) mEq/L Chloride 103 (98-107) mEq/L Carbon Dioxide 29 (23-29) mEq/L BUN 15 (6-20) mg/dL Creatinine 0.82 (0.70-1.30) mg/dL Glucose 103 (70-105) mg/dL Calcium 9.2 (8.6-10.3) mg/dL Consult Discharge Plan - Plan Referrals: Nadir Sanchez [Primary Care Provider] -
[2018-10-15 05:12] LABS: Hematocrit 30.7 % (37.5-50.1); Hemoglobin 8.7 g/dL (12.9-16.9)
[2018-10-15] MEDS: Pantoprazole 40 MG VIAL IVP SCH (05:22)
[2018-10-15] MEDS ORDERED: *HR* PHENYLEPHRINE 1,000 MCG/10 ML SYRINGE IVP ONE (08:38)
[2018-10-15] MEDS ORDERED: Lidocaine -MPF 2% 2 ML VIAL ONE (08:39)
[2018-10-15] MEDS ORDERED: Propofol 500 MG/50 ML INFUS..BTL ONE (08:40)
[2018-10-15] MEDS: Nicotine 14 MG PATCH.TD24 TD SCH (08:41)
[2018-10-15] MEDS: 0.9 % Sodium Chloride 1,000 ML IVC SCH (08:42)
--- NOTE | 2018-10-15 09:32 | Anesthesia Evaluation PreOp ---
Date of Encounter: 10/15/18 Time of Encounter: 09:30 - Past History Planned Operation: EGD and Colonoscopy Cardiac History: HTN Pulmonary History: Former smoker CLINICAL ADMISSIONS MANAGER History: Other (anxiety) Other Medical History: Other (BMI 43) Anesthesia History: No Prior Anesthetic Complications Alcohol Use: rarely Drug use: none Medications and Allergies Amlodipine Besylate 10 mg PO DAILY 10/12/18 [History] Citalopram Hydrobromide [Citalopram HBr] 40 mg PO DAILY 10/12/18 [History] Melatonin 5 mg PO HS 10/12/18 [History] Triamterene/HCTZ 37.5/25mg [Dyazide] 1 tab PO DAILY 10/12/18 [History] Allergy/AdvReac Type Severity Reaction Status Date / Time No Known Allergies Allergy Verified 10/12/18 21:41 - Meds/Allergy Pre-op Review Medications Reviewed: Yes Allergies Reviewed: Yes Beta Blockers on Current Med List: No Anesthesia Results - Labs 10/15/18 04:07 10/14/18 04:25 - Imaging EKG: report reviewed (Sinus rhythm Abnormal R-wave progression, late transition Electronically Signed On 10-14-2018 14:11:19 EDT by Prince Frausto) Anesthesia Exam Vital Signs/O2 Sat, Most Current Temp Pulse Resp BP Pulse Ox 98 F 68 18 137/73 95 10/15/18 09:17 10/15/18 09:17 10/15/18 09:17 10/15/18 09:17 10/15/18 09:17 Weight: 144kg NPO (# of Hours): >8 - HEENT Pupil (Motor): Pupils equal, EOMI Mallampati: III Teeth: Poor dentition Oral Opening: Greater than 3 - CLINICAL ADMISSIONS MANAGER LOC: Oriented CLINICAL ADMISSIONS MANAGER Motor: Normal RUE, Normal LUE, Normal RLE, Normal LLE, Normal Face CLINICAL ADMISSIONS MANAGER Sensory: Normal: RUE, LUE, RLE, LLE, Face - Cardiac Rhythm: Regular - Pulmonary Breath Sounds: bilateral Clear Respiratory Effort: Symmetrical Anesthesia Assess/Plan ASA Score: 3 (HTN, BMI 43) Anesthetic Plan: General, MAC Monitoring Plan: Standard Monitors Recovery Plan: PACU
--- NOTE | 2018-10-15 11:14 | Anesthesia Evaluation Post Op ---
Date of Encounter: 10/15/18 Time of Encounter: 11:13 - Vital Signs Vital Signs: Vital Signs/O2 Sat, Most Current Temp Pulse Resp BP Pulse Ox 97.8 F 66 16 109/66 97 10/15/18 10:23 10/15/18 10:23 10/15/18 10:23 10/15/18 10:23 10/15/18 10:23 - Lungs Lungs: Clear Ascult./Percussion - Airway Airway: Non-obstructed - Cardiovascular Regular Rate - Mental Status Mental Status: Alert & Oriented, Answers Appropriately - Pain Pain Scale: 0 Pain Scale used: Numeric (1 - 10) - Nausea Vomiting Nausea Vomiting: Not Present - Hydration Hydration: NPO - Discharge PostOp Status: Transfer Patient to floor
--- NOTE | 2018-10-15 13:18 | Acute Care Surgery Event Note ---
Date of Encounter: 10/15/18 Time of Encounter: 10:00 Pt unable to tolerated EGD/Colonoscopy yesterday under conscious sedation. Scopes repeated today with MAC. Marginal ulcer identified on EGD with oozing. A single polyps in transverse colon was removed. Clear liquid diet. PPI with protonix gtt. October DC on PPI BID after gtt complete.
--- NOTE | 2018-10-15 13:42 | Discharge Summary ---
Orders not resulted at time of discharge: Pending orders 10/15/18 10:09 Surgical Pathology [PTH] Routine Date of Encounter: 10/15/18 - Discharge Diagnosis (1) Anemia Status: Acute Qualifiers: Iron deficiency anemia type: unspecified iron deficiency Qualified Code(s): D50.9 - Iron deficiency anemia, unspecified (2) GI bleed Status: Acute Qualifiers: GI bleed type/associated pathology: unspecified gastrointestinal hemorrhage type Qualified Code(s): K92.2 - Gastrointestinal hemorrhage, unspecified (3) Dyspnea Status: Acute Qualifiers: Dyspnea type: dyspnea on exertion Qualified Code(s): R06.09 - Other forms of dyspnea (4) Chest pressure Status: Acute (5) DVT prophylaxis Status: Acute Hospital course: Mr. Valiente is a 53 year old male - Time Spent with Patient Total time spent providing and/or coordinating discharge services: - Discharge Medications Prescriptions: No Action Amlodipine Besylate 10 mg PO DAILY Citalopram Hydrobromide [Citalopram HBr] 40 mg PO DAILY Melatonin 5 mg PO HS Triamterene/HCTZ 37.5/25mg [Dyazide] 1 tab PO DAILY Home Medications: Amlodipine Besylate 10 mg PO DAILY 10/12/18 [History] Citalopram Hydrobromide [Citalopram HBr] 40 mg PO DAILY 10/12/18 [History] Melatonin 5 mg PO HS 10/12/18 [History] Triamterene/HCTZ 37.5/25mg [Dyazide] 1 tab PO DAILY 10/12/18 [History] Allergies/Adverse Reactions: Allergy/AdvReac Type Severity Reaction Status Date / Time No Known Allergies Allergy Verified 10/12/18 21:41 Date of admission: 10/12/18 22:28 Primary care physician: Nadir Sanchez Consults: 10/13/18 06:05 Consult to Surgery [CONS] Routine Consulting Provider: Acute Care Surgery Reason for Consult: GI Bleed Call Completed: Yes - Constitutional Vitals: Temp Pulse Resp BP Pulse Ox 97.8 F 66 16 109/66 97 10/15/18 10:23 10/15/18 10:23 10/15/18 10:23 10/15/18 10:23 10/15/18 10:23 - Patient Status Condition: Good - Discharge Instructions Follow Up With: Nadir Sanchez [Primary Care Provider] -
[2018-10-15] MEDS: Pantoprazole 40 MG in 0.9 % Sodium Chloride Mini Bag 100 ML IVC SCH ×3 (13:43→23:33)
--- NOTE | 2018-10-15 17:21 | Internal Med Progress Note ---
<Brody Medina - Last Filed: 10/15/18 17:21> Hospitalist Progress Note - Encounter Date of Encounter: 10/15/18 Time of Encounter: 13:22 - Subjective Interval History: Patient was seen and examined up at since afternoon. He states that overall he is feeling much better. He was initially presented with complaint of chest pain and found to have incidental finding of possible GI bleed. He has not noticed any blood or dark stools. He denies any symptoms of chest pain, shortness of breath, nausea, vomiting. He was able to eat lunch without any problems. - Exam Vitals: Temp Pulse Resp BP Pulse Ox 98.0 F 72 16 122/63 96 10/15/18 14:28 10/15/18 14:28 10/15/18 14:28 10/15/18 14:28 10/15/18 14:28 Exam: General: Alert and oriented 3 lying in bed in no acute distress Skin:Normal color, no rash, no lesions. HEENT:EOM, pupils equal, round and reactive. Tonsils are normal in appearance, no exudate, no airway swelling. Cardiovascular:Normal S1 & S2, no rubs, murmurs or gallops. No JVD. Pulse regular. Lungs:Normal breath sounds, no wheezes or crackles. Abdomen:Soft, non-tender, no rigidity. Periumbilical hernia Extremities:No deformity, no edema or tenderness, no joint swelling or clubbing. Neurological:Normal cognition and motor skills. Pulses:Carotid and radial pulses normal +2. Rest of the physical exam is non contributory - Assessment and Plan (1) Anemia Current Visit: Yes Status: Acute Assessment and Plan: Symptomatic microcytic anemia associated with dyspnea and symptoms of orthostasis for the past month. Currently stable at 8.7 from 8.6. Has dropped from 9.6 2 days ago. History of Vivienne-en-Y in 2000. Patient not currently on any blood thinner. Patient reporting pinkish streaks of blood on his stool intermittently. Also endorses taking 1 daily Aleve for the past year. Patient also reports occasional alcohol use. EGD/colonoscopy with surgery this morning shows multiple oozing gastric ulcers. Colonoscopy with 1 polyp which was resected. Otherwise within normal limits. Patient currently asymptomatic. Hemodynamically stable. Home NSAIDs discontinued. Plan IV Protonix drip recommended by general surgery. I did speak with surgeon today who recommends at least 8 hours of Protonix drip. No indication for transfusion at this time. We will continue monitor overnight Recommends Protonix 40 mg daily upon discharge Discussed dietary changes including avoidance of acidic foods, spicy foods, alcohol. We will obtain iron studies (2) GI bleed Current Visit: Yes Status: Acute Assessment and Plan: History of GI bleed in patient with prior history of Vivienne-en-Y surgery in 2000. Patient reports having streaks of blood intermittently on his stool. Patient also endorses one daily Aleve for the past year. No reports of abdominal pain. Results as above Plan as above (3) Dyspnea Current Visit: Yes Status: Resolved Assessment and Plan: Patient reports 1 month history of dyspnea with exertion. Suspect likely secondary to anemia. Cannot r/o underlying CAD as a contributing factor -Consider tranfusing if Hb continues to drop -Out Px workup for CAD is already scheduled (4) Chest pressure Current Visit: Yes Status: Acute Assessment and Plan: Patient reports intermittent chest pressure with exertion. Initial troponin negative. EKG shows no evidence of ischemic changes. Patient has of a family history of heart very artery disease in his father. Patient reports he has outpatient stress test plan for the of this month. Patient currently asymptomatic. Outpatient stress test scheduled for 10/22 (5) DVT prophylaxis Current Visit: Yes Status: Acute Assessment and Plan: Pneumatic compression devices in the setting of acute GI bleed - Time Spent with Patient Total time spent is greater than 50% in coordination of care (as documented) at patient's floor/unit and/or counseling patient: Internal Medicine: Result - Labs CBC & Chem 7: 10/15/18 04:07 10/14/18 04:25 Labs: Short CBC 10/15/18 Range/Units 04:07 Hgb 8.7 L (12.9-16.9) g/dL Hct 30.7 L (37.5-50.1) % - ABG Interpretation ABG results: PT/INR, D-dimer PT 11.3 Seconds (9.4-12.1) 10/13/18 02:03 Consult Discharge Plan - Plan Referrals: Nadir Sanchez [Primary Care Provider] - <Madelin Anaya - Last Filed: 10/15/18 17:42> Hospitalist Progress Note - Encounter Date of Encounter: 10/15/18 - Exam Vitals: Temp Pulse Resp BP Pulse Ox 98.0 F 72 16 122/63 96 10/15/18 14:28 10/15/18 14:28 10/15/18 14:28 10/15/18 14:28 10/15/18 14:28 - Assessment and Plan (1) Anemia Current Visit: Yes Status: Acute (2) GI bleed Current Visit: Yes Status: Acute (3) Dyspnea Current Visit: Yes Status: Resolved (4) Chest pressure Current Visit: Yes Status: Acute (5) DVT prophylaxis Current Visit: Yes Status: Acute - Time Spent with Patient Total time spent is greater than 50% in coordination of care (as documented) at patient's floor/unit and/or counseling patient: Internal Medicine: Result - Labs CBC & Chem 7: 10/15/18 04:07 10/14/18 04:25 Labs: Short CBC 10/15/18 Range/Units 04:07 Hgb 8.7 L (12.9-16.9) g/dL Hct 30.7 L (37.5-50.1) % - ABG Interpretation ABG results: PT/INR, D-dimer PT 11.3 Seconds (9.4-12.1) 10/13/18 02:03 - Attending Attestation I examined this patient and my medical decision-making was reviewed with the Resident Physician. I agree with the documented findings, disposition and treatment plan as described except to the extent set forth below. <Brody Medina - Last Filed: 10/15/18 17:21> (1) Anemia Qualifiers: Iron deficiency anemia type: unspecified iron deficiency Qualified Code(s): D50.9 - Iron deficiency anemia, unspecified (2) GI bleed Qualifiers: GI bleed type/associated pathology: unspecified gastrointestinal hemorrhage type Qualified Code(s): K92.2 - Gastrointestinal hemorrhage, unspecified (3) Dyspnea Qualifiers: Dyspnea type: dyspnea on exertion Qualified Code(s): R06.09 - Other forms of dyspnea <Madelin Anaya - Last Filed: 10/15/18 17:42> (1) Anemia Qualifiers: Iron deficiency anemia type: unspecified iron deficiency Qualified Code(s): D50.9 - Iron deficiency anemia, unspecified (2) GI bleed Qualifiers: GI bleed type/associated pathology: unspecified gastrointestinal hemorrhage type Qualified Code(s): K92.2 - Gastrointestinal hemorrhage, unspecified (3) Dyspnea Qualifiers: Dyspnea type: dyspnea on exertion Qualified Code(s): R06.09 - Other forms of dyspnea
[2018-10-15] MEDS ORDERED: Acetaminophen 325 MG TABLET PO ONE (20:25)
[2018-10-16] MEDS: Pantoprazole 40 MG in 0.9 % Sodium Chloride Mini Bag 100 ML IVC SCH ×2 (04:31→09:31)
[2018-10-16 05:49] LABS: Immature Granulocytes % 0.2 % (0-4); Mean Platelet Volume 9.1 fL (9.4-12.4)
[2018-10-16 05:51] LABS: Basophils # 0.1 K/mcL (0.0-0.2); Eosinophils # 0.5 K/mcL (0.0-0.6); Eosinophils % 5.2 %; Hematocrit 31.3 % (37.5-50.1); Hemoglobin 8.7 g/dL (12.9-16.9); Lymphocytes % 21.6 %; Mean Corpuscular HGB Conc 27.8 g/dL (31.6-35.5); Mean Corpuscular Hemoglobin 19.2 pg (28.0-33.3); Mean Corpuscular Volume 69.2 fL (83.0-100.0); Monocytes # 0.7 K/mcL (0.0-1.3); Monocytes % 7.6 %; Neutrophils # 5.9 K/mcL (1.6-8.9); Platelet Count 466 K/mcL (140-400); Red Blood Count 4.52 M/mcL (4.19-5.50); Segmented Neutrophils % 64.4 %
[2018-10-16 06:08] LABS: % Iron Saturation 3 % (20-55); Iron 16 mcg/dL (65-175); Transferrin 373 mg/dL (203-362)
[2018-10-16 06:39] LABS: Anisocytosis 2+ (Not Present); Hypochromasia Present (Not Present); Microcytosis Present (Not Present); Platelet Estimate Increased (Normal)
--- NOTE | 2018-10-16 08:07 | Discharge Summary ---
<Brody Medina - Last Filed: 10/16/18 14:19> - NOTES TO OUTPATIENT PROVIDER Notes to Outpatient Provider: Admitted for chest pain and found to be anemic. Underwent EGD/colonoscopy with oozing gastric ulcers which may have been related to chest pain which is now resolved. Started on protonix, carafate, iron supplement. Orders not resulted at time of discharge: Pending orders 10/15/18 10:09 Surgical Pathology [PTH] Routine Date of Encounter: 10/16/18 Time of Encounter: 09:10 - Discharge Diagnosis (1) Anemia Priority: Primary Status: Acute Qualifiers: Iron deficiency anemia type: unspecified iron deficiency Qualified Code(s): D50.9 - Iron deficiency anemia, unspecified (2) GI bleed Priority: Secondary Status: Acute Qualifiers: GI bleed type/associated pathology: unspecified gastrointestinal hemorrhage type Qualified Code(s): K92.2 - Gastrointestinal hemorrhage, unspecified (3) Dyspnea Priority: Secondary Status: Resolved Qualifiers: Dyspnea type: dyspnea on exertion Qualified Code(s): R06.09 - Other forms of dyspnea (4) Chest pressure Priority: Secondary Status: Resolved (5) DVT prophylaxis Priority: Secondary Status: Acute Hospital course: Mr. Valiente is a 53 year old male with past medical history of hypertension and Vivienne-en-Y gastric bypass surgery, who presented to the emergency department from outpatient laboratory due to a low hemoglobin. Hemoglobin was noted to be at 9.5 and in the emergency department, repeat was 8.7. He did admit to pink streaks stools during that time but denied any gross hematochezia, melena, hematemesis. Vital signs on presentation were significant for heart rate of 90, blood pressure 191/83. Laboratory results were significant for a microcytic anemia with hemoglobin of 8.7 and MCV of 66.6, platelet counts mildly elevated at 514. Chemistry showed a sodium of 134 and potassium of 3.4. Iron studies were obtained during admission and were grossly depressed. Stool occult test was negative in the emergency department. Chest x-ray was negative. Of note, patient also did admit to dyspnea on exertion and occasional chest pressure over the course of the last month. Suspected etiology is this anemia however CAD could not be ruled out. He does have outpatient follow-up with a stress test scheduled for next week. Troponin EKG within normal limits. Throat course of hospital stay, patient did gradually improve. Acute care surgery was consulted and they did perform an EGD and colonoscopy during his stay. Significant findings including one benign polyp which was resected. Pathology is pending. EGD did show several oozing gastric ulcers without obvious bleeds but with stigmata of previous bleed. He was started on Protonix drip per surgery recommendations. He will be discharged home on medications including oral Protonix, Carafate as well as iron supplementation. On day of discharge, patient's symptoms have completely resolved and he has no concerns at this time. He is not noticing any dark or bloody bowel movements in this time. He is expressing no pain, nausea, vomiting and is tolerating his diet well. 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 All questions were answered Discharge discussed with: patient, social work, case management - Time Spent with Patient Total time spent providing and/or coordinating discharge services: - Discharge Medications Prescriptions: New Docusate [Colace] 100 mg PO DAILY #30 capsule Ferrous Sulfate 325 mg PO DAILY #30 tablet Omeprazole [PriLOSEC] 40 mg PO DAILY #30 cap Sucralfate [Carafate] 1 gm PO QIDAC #120 tablet Nicotine Patch [Nicoderm] 14 mg TD DAILY #10 patch Continued Amlodipine Besylate 10 mg PO DAILY Citalopram Hydrobromide [Citalopram HBr] 40 mg PO DAILY Melatonin 5 mg PO HS Triamterene/HCTZ 37.5/25mg [Dyazide] 1 tab PO DAILY Home Medications: Amlodipine Besylate 10 mg PO DAILY 10/12/18 [History] Citalopram Hydrobromide [Citalopram HBr] 40 mg PO DAILY 10/12/18 [History] Melatonin 5 mg PO HS 10/12/18 [History] Triamterene/HCTZ 37.5/25mg [Dyazide] 1 tab PO DAILY 10/12/18 [History] Docusate [Colace] 100 mg PO DAILY #30 capsule 10/16/18 [Rx] Ferrous Sulfate 325 mg PO DAILY #30 tablet 10/16/18 [Rx] Nicotine Patch [Nicoderm] 14 mg TD DAILY #10 patch 10/16/18 [Rx] Omeprazole [PriLOSEC] 40 mg PO DAILY #30 cap 10/16/18 [Rx] Sucralfate [Carafate] 1 gm PO QIDAC #120 tablet 10/16/18 [Rx] Allergies/Adverse Reactions: Allergy/AdvReac Type Severity Reaction Status Date / Time No Known Allergies Allergy Verified 10/12/18 21:41 Date of admission: 10/12/18 22:28 Primary care physician: Nadir Sanchez Consults: 10/13/18 06:05 Consult to Surgery [CONS] Routine Consulting Provider: Acute Care Surgery Reason for Consult: GI Bleed Call Completed: Yes Discharging clinician: Brody Medina Anticipated date of discharge: 10/16/18 - Constitutional Vitals: Temp Pulse Resp BP Pulse Ox 97.6 F 68 16 127/68 96 10/16/18 05:14 10/16/18 05:14 10/16/18 05:14 10/16/18 05:14 10/16/18 05:14 Exam: General: Alert and oriented 3 lying in bed in no acute distress Skin:Normal color, no rash, no lesions. HEENT:EOM, pupils equal, round and reactive. Tonsils are normal in appearance, no exudate, no airway swelling. Cardiovascular:Normal S1 & S2, no rubs, murmurs or gallops. No JVD. Pulse regular. Lungs:Normal breath sounds, no wheezes or crackles. Abdomen:Soft, non-tender, no rigidity. Periumbilical hernia Extremities:No deformity, no edema or tenderness, no joint swelling or clubbing. Neurological:Normal cognition and motor skills. Pulses:Carotid and radial pulses normal +2. Rest of the physical exam is non contributory - Patient Status Disposition: Home, Self-Care Condition: Good Functional capacity at discharge: independent ambulation Overall status at discharge: patient is back to baseline - Discharge Instructions Instructions: Diet for Ulcers and Gastritis (GEN) Follow Up With: Bhavik Diaz [Partnered Physician] - 10/30/18 8:40 am Nadir Sanchez [Primary Care Provider] - (web request. office will call with date and time. thank you) - Diet and Activity Activity: increase activity as tolerated, return to work once cleared by your PCP/specialist Diet: other (low acid, no carbonation, no spicy foods until cleared by PCP) <Madelin Anaya - Last Filed: 10/16/18 17:52> Orders not resulted at time of discharge: Pending orders 10/15/18 10:09 Surgical Pathology [PTH] Routine Date of Encounter: 10/16/18 - Discharge Diagnosis (1) Anemia Status: Acute Qualifiers: Iron deficiency anemia type: unspecified iron deficiency Qualified Code(s): D50.9 - Iron deficiency anemia, unspecified (2) GI bleed Status: Acute Qualifiers: GI bleed type/associated pathology: unspecified gastrointestinal hemorrhage type Qualified Code(s): K92.2 - Gastrointestinal hemorrhage, unspecified (3) Dyspnea Status: Resolved Qualifiers: Dyspnea type: dyspnea on exertion Qualified Code(s): R06.09 - Other forms of dyspnea (4) Chest pressure Status: Resolved (5) DVT prophylaxis Status: Acute Hospital course: Mr. Valiente is a 53 year old male - Time Spent with Patient Total time spent providing and/or coordinating discharge services: Date of admission: 10/12/18 22:28 Primary care physician: Nadir Sanchez Consults: 10/13/18 06:05 Consult to Surgery [CONS] Routine Consulting Provider: Acute Care Surgery Reason for Consult: GI Bleed Call Completed: Yes - Constitutional Vitals: Temp Pulse Resp BP Pulse Ox 97.6 F 69 16 107/67 96 10/16/18 08:06 10/16/18 08:06 10/16/18 08:06 10/16/18 08:06 10/16/18 08:06 - Attending Attestation I examined this patient and my medical decision-making was reviewed with the Resident Physician. I agree with the documented findings, disposition and treatment plan as described except to the extent set forth below.
[2018-10-16 08:09] VITALS: BP 107/67
[2018-10-16] MEDS: Nicotine 14 MG PATCH.TD24 TD SCH (09:31)
== END 2018-10-16 13:29 | disposition home or self-care (01) ==
LOC: EMEROOARM 17:15 → SUATTDRO 22:28 → INTOOBSV 22:28 → 3ANU 22:28
PROVIDERS: ADMIT Pediatrics; ATTEND Student in an Organized Health Care Education/Training Program